=== PATIENT | female | born 1975 | race Caucasian/White ===

== ENCOUNTER 2022-03-09 11:36 | Emergency (ER) | payer BC, OTHER ==
[2022-03-09 12:15] VITALS: TEMP 98.7; BMI 37.5
[2022-03-09] MEDS ORDERED: ACETAMINOPHEN 1000 MG/100 ML BAG IVPB ONE (12:36)
[2022-03-09] MEDS ORDERED: SODIUM CHLORIDE 0.9% 500 ML INFUS.BAG IV ONE (12:44)
[2022-03-09] MEDS ORDERED: METOCLOPRAMIDE HCL INJECTION 10 MG/2 ML VIAL IVPB ONE (12:44)
[2022-03-09] MEDS ORDERED: METOCLOPRAMIDE HCL INJECTION 10 MG/2 ML VIAL ONE (14:01)
[2022-03-09] MEDS ORDERED: ACETAMINOPHEN INJECTION 100 ML IVPB ONE (14:02)
[2022-03-09 14:58] LABS: BASO % 0.5 % (0-2.0); EOS % 0.5 % (0-4.5); HEMATOCRIT 35.3 % (32.4-45.2); HEMOGLOBIN 11.9 GM/dL (10.7-15.3); LYMPH % 18.3 % (8-40); MCHC 33.7 g/dl (32.0-36.0); MEAN CELL VOLUME 82.8 fl (80-96); MEAN PLT VOLUME 9.2 fl (7.5-11.1); MONO % 4.4 % (3.8-10.2); NEUT % 76.3 % (42.8-82.8); PLATELET COUNT 221 10^3/uL (134-434); RBC 4.26 M/mm3 (3.60-5.2); RDW 13.6 % (11.6-15.6); WHITE BLOOD COUNT 7.5 K/mm3 (4.0-10.0)
[2022-03-09 15:05] LABS: INR 1.01 (0.83-1.09); PROTHROMBIN TIME (PATIENT) 11.6 SEC (9.7-13.0)
[2022-03-09 15:07] LABS: ACTIVATED PTT 33.5 SECONDS (25.2-36.5)
[2022-03-09 15:19] LABS: BLOOD UREA NITROGEN 13.1 mg/dL (7-18); CALCIUM 8.8 mg/dL (8.5-10.1)
[2022-03-09 15:20] LABS: ALBUMIN 3.7 g/dl (3.4-5.0)
[2022-03-09 15:22] LABS: CREATININE 0.4 mg/dL (0.55-1.3)
[2022-03-09 15:24] LABS: BILIRUBIN,TOTAL 0.4 mg/dL (0.2-1); TOT PROT 8.1 g/dl (6.4-8.2)
[2022-03-09 15:28] LABS: N-TERMINAL BNP 74.1 pg/ml (5-125)
[2022-03-09 16:27] VITALS: BP 130/80; PULSE 75; RESP 18
== END 2022-03-09 16:27 | disposition home or self-care (01) ==
LOC: JER 11:36
PROC: 3E033GC Introduction of Other Therapeutic Substance into Peripheral Vein, Percutaneous Approach (ICD-10-PCS; principal; 2022-03-09)
DX: R51.9 Headache, unspecified (principal); R07.89 Other chest pain
CPT/HCPCS: 36415; 70450-TC; 71046-TC-FY; 80053; 83880; 84484; 84703; 85025; 85610; 85730; 93005; 93010; 99285-25; C9803-CS; U0003; U0005

== ENCOUNTER 2024-04-18 20:49 | Emergency (ER) | payer BC, OTHER ==
[2024-04-18 21:00] VITALS: BP 123/80; PULSE 87; RESP 20; TEMP 97.7; BMI 32.7
[2024-04-18] MEDS ORDERED: IBUPROFEN 600 MG TABLET (FP) PO ONE (22:32)
[2024-04-18] MEDS ORDERED: ACETAMINOPHEN 500 MG TABLET (FP) ONE (22:32)
[2024-04-18] MEDS: IBUPROFEN 600 MG TABLET (FP) PO ONE (22:36)
[2024-04-18] MEDS: ACETAMINOPHEN 500 MG TABLET (FP) PO ONE (22:37)
== END 2024-04-19 00:08 | disposition home or self-care (01) ==
LOC: JERFT 20:49
DX: M54.6 Pain in thoracic spine (principal); V49.49XA Driver injured in collision with other motor vehicles in traffic accident, initial encounter; Y92.410 Unspecified street and highway as the place of occurrence of the external cause
CPT/HCPCS: 72070-TC-FY; 99283-25